=== PATIENT | female | born 1945 ===

== ENCOUNTER 2023-01-10 07:49 | Inpatient (IN) ==
--- NOTE | 2023-01-03 10:25 | PAT Medication Instructions ---
Medication Instructions Date of Service January 03, 2023 Home Medications Medication Instructions Recorded dashawn (Ultra-Light Rollator misc) #1 ea 12/31/22 acetaminophen 500 mg tablet (Tylenol Extra Strength) 500 mg PO Q6H PRN Pain ascorbic acid (vitamin C) 1,000 mg capsule 1 g PO Q6H cholecalciferol (vitamin D3) 125 mcg (5,000 unit) capsule 125 mcg PO DAILY citalopram 20 mg tablet 20 mg PO HS diclofenac sodium 1 % topical gel (Voltaren Arthritis Pain) 2 g topical QID ibuprofen 200 mg capsule 200 mg PO Q6H PRN Pain mecobalamin (vitamin B12) 1,000 mcg chewable tablet 1,000 mcg PO QAM naproxen sodium 220 mg capsule (Aleve) 220 mg PO BID PRN Pain nortriptyline 50 mg capsule 50 mg PO HS ASK your surgeon for instructions diclofenac sodium 1 % topical gel (Voltaren Arthritis Pain) 2 g topical QID ibuprofen 200 mg capsule 200 mg PO Q6H PRN Pain naproxen sodium 220 mg capsule (Aleve) 220 mg PO BID PRN Pain ASK your prescriber and surgeon nortriptyline 50 mg capsule 50 mg PO HS DO NOT take the morning of surgery ascorbic acid (vitamin C) 1,000 mg capsule 1 g PO Q6H cholecalciferol (vitamin D3) 125 mcg (5,000 unit) capsule 125 mcg PO DAILY mecobalamin (vitamin B12) 1,000 mcg chewable tablet 1,000 mcg PO QAM Take morning of surgery With a small sip of water, OTHERWISE NOTHING TO EAT OR DRINK AFTER MIDNIGHT: acetaminophen 500 mg tablet (Tylenol Extra Strength) 500 mg PO Q6H PRN Pain (if needed) Take evening before surgery acetaminophen 500 mg tablet (Tylenol Extra Strength) 500 mg PO Q6H PRN Pain (if needed) ascorbic acid (vitamin C) 1,000 mg capsule 1 g PO Q6H citalopram 20 mg tablet 20 mg PO HS Other Notes If you have any questions please call us at [phone] or [phone] or [phone] or [phone]
--- NOTE | 2023-01-04 08:29 | Anesthesiology Consultation ---
Date of Service January 04, 2023 Assessment & Plan (1) Encounter for pre-operative examination: - pt is electing no chlorhexidine wipes d/t sensitive skin and concern for skin breakage prior to surgery. Surgeon's office made aware. - Pt requests PAT testing be faxed to PCP (Noemi Mccabe) for continuity of care. - Outpatient joint assessment: Patient is currently scheduled for inpatient pathway. If re-evaluated pending system levels during current pandemic/surgeon requests outpatient pathway, patient is not acceptable candidate for outpatient joint program from anesthesia standpoint. Chart Review Chart Review: Acceptable Risk for Surgery and Patient seen in Pre Admission Testing Teaching & Discussion Pre-Anesthesia Teaching/Discussion Notes: Instructed NPO after midnight before surgery, except medications with 15 cc of water. Medication instructions provided according to the PAT guidelines. History Surgery Operation Date: 01/10/23 14:15 Proposed Procedures p Right Total Knee Arthroplasty - Duane Longo MD Height/Weight Height: 5 ft Weight: 74.7 kg Allergies Allergy/AdvReac Type Severity Reaction Status Date / Time surgical prep solutions AdvReac Severe see below Uncoded 01/03/23 09:40 Medications Home Medications Medication Instructions Recorded Confirmed Last Taken acetaminophen 500 mg tablet 500 mg PO Q6H PRN Pain 12/31/22 01/03/23 Unknown (Tylenol Extra Strength) ascorbic acid (vitamin C) 1,000 mg 1 g PO Q6H 12/31/22 01/03/23 Unknown capsule cholecalciferol (vitamin D3) 125 125 mcg PO DAILY 12/31/22 01/03/23 Unknown mcg (5,000 unit) capsule citalopram 20 mg tablet 20 mg PO HS 12/31/22 01/03/23 Unknown diclofenac sodium 1 % topical gel 2 g topical QID 12/31/22 01/03/23 Unknown (Voltaren Arthritis Pain) ibuprofen 200 mg capsule 200 mg PO Q6H PRN Pain 12/31/22 01/03/23 Unknown mecobalamin (vitamin B12) 1,000 1,000 mcg PO QAM 12/31/22 01/03/23 Unknown mcg chewable tablet naproxen sodium 220 mg capsule 220 mg PO BID PRN Pain 12/31/22 01/03/23 Unknown (Aleve) nortriptyline 50 mg capsule 50 mg PO HS 05/12/23 05/15/23 Unknown walker (Ultra-Light Rollator misc) #1 ea 12/31/22 01/03/23 Unknown Past Medical History Medical History (Updated 01/04/23 @ 08:47 by Kate Davis PA-C) 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 Exercise / Class Metabolic Activity III < 4 Walking/Shop/Light housework (denies chest discomfort or shortness of breath with usual activities) Past Surgical History Surgical History History of cataract surgery bilat History of colonoscopy History of tooth extraction Hx of knee surgery 1998 from injury > left Past Anesthesia History No Hx of Anesthesia Complications and No Family Hx of Anesthesia Complications History of PONV No Hx of Motion Sickness and History of PONV (denies needing scop patch) Social History Smoking Status: Former smoker Do You Dip or Chew Tobacco: No Smoking End Date: 20 yrs ago Hx Alcohol Use: No Hx Substance Use: No substance use type: does not use Review of Systems Patient denies chest pain, shortness of breath, dyspnea on exertion, snoring, witnessed apneas, reflux, fever, chills, cough, wheezing, or palpitations. Physical Exam Vital Signs Vitals BP 134/73 P 93 TEMP 98.3 SP02 96% on RA RESP 17 Physical Full cervical extension range of motion without pain TMD 3.5 finger breadths Mallampati Score 2 Dentition: right side upper two teeth are loose per pt; denies chipped teeth, caps/crowns, implants or bridges Lungs: normal respiratory effort. Good air movement, clear throughout to auscultation, no adventitious breath sounds Cardiac: regular rate and rhythm, no murmurs noted Carotid arteries: negative bruit bilat Lab Results Anesthesia Preop Results Results Anesthesia Widget: WBC 4.78 K/ul (4.8-10.8) L 01/04/23 Hgb 13.7 g/dl (12.0-16.0) 01/04/23 Hct 41.1 % (37.0-47.0) 01/04/23 Plt 310 K/uL (130-400) 01/04/23 Na 141 mmol/L (136-145) 01/04/23 K 4.7 mmol/L (3.5-5.1) 01/04/23 Cl 105 mmol/L (98-107) 01/04/23 CO2 30 mmol/L (21-32) 01/04/23 BUN 15 mg/dl (6-23) 01/04/23 Creat 0.84 mg/dl (0.6-1.2) 01/04/23 Glucose Level 95 mg/dl (70-99(Fasting)) 01/04/23 PT 11.0 Seconds (9.0-12.0) 01/04/23 PTT 26.6 Seconds (21.0-31.0) 01/04/23 INR 1.0 (0.9-1.1) 01/04/23 Blood Type O Positive 01/04/23 Antibody Screen NEGATIVE 01/04/23 Testing Electrocardiogram Date: 01/04/23 NSR, rate 91 bpm Chest X-Ray Date: 01/04/23 No acute chest disease COVID-19 Risk Screen Screening Information COVID-19 Screen Date: 01/04/23 Exposure 21 Days Family/Household +COVID Last 21 Days: No Exposure 10 Days Any COVID Exposure Last 10 Days: No Symptoms Last 10 Days Experienced COVID Sx Last 10 Days: No + COVID 0-90 Days COVID + in Last 0-90 Days: No
[~2023-01-10 07:49] MED LIST: ACETAMINOPHEN 500 MG TAB PO SCH; BUPIVACAINE 0.5 % 5 MG/1 ML PF 10ML VIAL ONE; BUPIVACAINE LIPOSOME/PF 266 MG, BUPIVACAINE/EPINEPHRINE 50 ML, SODIUM CHLORIDE 0.9% PF ... INFIL SCH; CeleBREX 200 MG CAP PO SCH; EPINEPHrine INJ 1 MG/ML AMP ONE; FAMOTIDINE 20 MG TAB PO SCH; LR 500ML BOLUS, THEN 15ML/HR IV SCH; LR 60ML/HR IV SCH; METOCLOPRAMIDE HCL 10 MG TABLET PO SCH; ROPIVACAINE 0.5% 5 MG/ML 30 ML VIAL ONE; TRANEXAMIC ACID 1,000 MG **IV Intra-op IV SCH; ceFAZolin 2000MG 2,000 MG/15 ML SYR IV SCH; dexAMETHasone**PF** 10 MG/ML VIAL IV SCH
--- NOTE | 2023-01-10 08:30 | History & Physical Bridge Note ---
Date of Service January 10, 2023 History & Physical Bridge Note I have examined the patient, reviewed the History & Physical and in the interval since the performance of the History & Physical I have noted the following changes of clinical significance: no changes noted
[2023-01-10] MEDS ORDERED: ONDANSETRON INJ 2 MG/ML 2 ML VIAL ONE (10:13)
[2023-01-10] MEDS ORDERED: LIDOCAINE 2% 2 ML VIAL/AMP(20MG/ML) INFIL ONE (10:13)
[2023-01-10] MEDS ORDERED: MIDAZOLAM HCL 1 MG/ML 2ML VIAL ONE (10:13)
[2023-01-10] MEDS ORDERED: fentaNYL citrate PF 100 MCG/2 ML VIAL ONE ×2 (10:13→11:38)
[2023-01-10] MEDS ORDERED: PROPOFOL IV EMULSION 10 MG/ML 20 ML VIAL IV ONE (10:13)
[2023-01-10] MEDS ORDERED: KETOROLAC 30 MG/ML VIAL ONE (10:13)
[2023-01-10] MEDS ORDERED: BUPIVACAINE/EPINEPHRINE 0.25% 1:200,000 30 ML VIAL ONE (10:37)
[2023-01-10] MEDS ORDERED: SODIUM CHLORIDE 0.9% PF 50 ML VIAL ONE (10:37)
[2023-01-10] MEDS ORDERED: BUPIVACAINE LIPOSOME 1.3% 266 MG/20 ML VIAL ONE (10:38)
[2023-01-10] MEDS ORDERED: KETAMINE 50 MG/5 ML SYRINGE ONE (11:24)
[2023-01-10] MEDS ORDERED: ATROPINE SULFATE 0.1 MG/ML 10ML SYR IV PRN (11:32)
[2023-01-10] MEDS ORDERED: PROMETHAZINE HCL 12.5 MG in SODIUM CHLORIDE 0.9% 50 ML IV PRN (11:32)
[2023-01-10] MEDS ORDERED: NALOXONE HCL 0.4 MG/1 ML VIAL/CARP IV PRN ×2 (11:32→15:05)
[2023-01-10] MEDS ORDERED: ONDANSETRON INJ 2 MG/ML 2 ML VIAL IV PRN ×2 (11:32→15:05)
[2023-01-10] MEDS ORDERED: ePHEDrine sulfate 50 MG/ML AMP IV PRN (11:32)
[2023-01-10] MEDS ORDERED: HYDROmorphone INJ 1 MG/ML SYRINGE IV PRN (11:32)
[2023-01-10] MEDS ORDERED: FLUMAZENIL 0.1 MG/1 ML 10 ML VIAL IV PRN (11:32)
[2023-01-10] MEDS ORDERED: fentaNYL citrate PF 100 MCG/2 ML VIAL IV PRN (11:32)
[2023-01-10] MEDS ORDERED: ESMOLOL HCL INJ 10 MG/ML 10ML VIAL IV ONE (11:43)
[2023-01-10] MEDS ORDERED: LABETALOL HCL IV 5 MG/ML 20ML IV ONE (11:46)
--- NOTE | 2023-01-10 12:57 | Operative Report ---
PG Post Operative Report Pre & Post Diagnosis Operation Date: 01/10/23 10:30 Pre-Op Diagnosis: Right Knee Degenerative Joint Disease Post-Op Diagnosis: Right Knee Degenerative Joint Disease I identified the patient and participated in the time-out.: Yes Procedure Operation Date: 01/10/23 10:30 Actual Procedures p Right Total Knee Arthroplasty(Right) - Duane Longo MD Surgeon Duane Longo MD Payroll Secretary Dea Camargo PA-C Estimated Blood Loss 50 Findings Consistent with Post-Op Diagnosis Operative findings were advanced right knee tricompartment DJD. She had extensive grade 4 [id number] disease in all 3 compartments with osteophytes in all 3 compartments as well as a chronic ACL deficiency. Specimens Right knee sent for pathology Anesthesia Type General Regional Complications none Disposition Accompanied Patient To Recovery: No Indications Patient 77-year-old female has had a long history of bilateral knee pain discomfort describes gotten worse over time patient failed all conservative filomena sures. X-rays showed advanced tricompartment DJD in both knees. She elected to proceed with right knee replacement. Description of Procedure Operative implants consist of: 1 Biomet Vanguard size 55 right posterior stabilized femoral component. 2. Biomet size 63 tibial tray. 3. 14 mm posterior stabilized polyethylene insert. 4. 31 x 8 all poly patella. The patient was taken the operating, identified, placed on the operating table supine position protectors were properly padded. IV antibiotics tried by anesthesia team. A spinal anesthetic had been attempted in the holding area but unsuccessful. They did do an abductor canal block. A general anesthetic was implemented. A right thigh turn was then placed. A Keating catheter was placed in sterile fashion. The right lower extremities then prepped and draped in usual sterile fashion. The right leg was elevated exsanguinated with use of an Esmarch and the tourniquet was placed at 300 mmHg. An anterior approach of the right knee was then performed to longitudinal incision centered over the patella. Sharp dissection was carried through subcutaneous tissue down the extensor mechanism. A medial parapatellar arthrotomy incision was made. Some subperiosteal dissection was carried out medially. The fat pad was resected from Neath patella tendon. Lateral patellofemoral ligament was released. Patella subluxated laterally knee was flexed. The osteophytes taken off distal femur. The ACL and PCL were then released from distal femur the tibia subluxated anteriorly. External tibial alignment jig was then placed in the interface the tibia and adjusted 12 mm medially. Proximal tibial cut was made remove about 3 mm of bone from the medial side. Tibia sized to a size 63. Attention drawn the femur. The distal femur was then with a sharp drop with intramedullary canal was suction. A right 5 degree valgus cutting guide was placed. Distal femoral cutting block was pinned in place. Distal femoral cut was made to take an additional 3 mm bone off distal femur. The femur was then sized to a size 55. The AP cutting block was pinned parallel to the epicondylar axis which was 5 degrees of external rotation. The anterior cut, anterior chamfer, posterior cut, posterior chamfer cuts were made. The box cutting guide was placed in just slight lateral and the box cut was made. The knee was flexed. The remnants of the medial lateral menisci were excised. The osteophyte taken off the posterior aspect of the femur. A trial femoral component was placed. The tibial tray was pinned in maximum external rotation and the drill and stem punch were used to create defect in proximal tibia for the tibial tray. Knee was then trialed and the 14 mm insert fit most appropriately. Of note she did have a hyperextension deformity to her knee preoperatively. Attention drawn the patella. The patella was cleaned of all soft tissues. Patella thickness measured 18 mm in thickness and was cut down to 12. We removed a lot of osteophytes circumferentially around the patella. The lug holes were drilled for the 31 patella. The lateral osteophytes removed. Patella button was placed. Knee was taken through range of motion patella tracked nicely with no thumbs test. Attention drawn to placing permanent components. Nupathe all trial components were removed. A bone plug was placed in the distal femur limit blood loss. Double batch Palacos G cement was mixed. Biomet ETI Internationalguard size 655 right posterior stabilized femoral component, a size 63 tibial tray, a 14 mm posterior stabilized polyethylene insert, and a 31 x 8 all poly patella was then cemented in place. Knee was brought into full extension till cement hardened. Final cement check was then performed. The pericapsular tissues were injected with total of 100 cc of combination of 20 cc Exparel, 30 cc normal saline, 50 cc of quarter percent Marcaine with epinephrine. Patient did receive 1 g tranexamic acid. The tourniquet was then let down for final tourniquet time of 52 minutes. Hemostasis assured with electrocautery. Extensor mechanism closed with combination 1 PDS suture and 1 Vicryl suture in [id number] fashion. Extensor mechanism checked found to be intact and the subcutaneous tissues then closed with 2 Dexon suture in buried interrupted fashion skin was closed skin rebecca. Leg was then cleaned and dried and sterile dressed with Xeroform, 4 fours, sterile cast padding, Walt bandage were applied. The patient was then brought out of general anesthesia and transferred to the recovery room in stable condition. Patient tolerated procedure well no complications. Dae Camargo, my physician orthopedic physician assistant, was present for the entire procedure. His assistance was essential and required for appropriate patient positioning, prepping and draping, surgical exposure, performing the technical details of the operation, placement the implants, closure of the wound, and placement of the sterile bandage. I attest to the content of the Intraoperative Record and any orders documented therein. Any exceptions are noted below.
--- NOTE | 2023-01-10 13:46 | Anesthesiology Progress Note ---
Date of Service January 10, 2023 Anesthesia Post Procedure Vital Signs Vital Signs: Temp Pulse Pulse Resp BP Pulse Ox O2 Del Method 01/10/23 13:30 89 15 146/76 H 92 Room Air 01/10/23 13:20 90 18 146/88 H 95 Oxymask 01/10/23 13:10 91 H 13 187/88 H 91 Oxymask 01/10/23 13:00 84 14 204/101 H 95 Oxymask 01/10/23 12:57 36.4 C L 87 15 189/100 H 95 Oxymask 01/10/23 08:52 36.8 C 96 H 20 140/95 97 Room Air O2 Flow Rate 01/10/23 13:30 01/10/23 13:20 5 01/10/23 13:10 5 01/10/23 13:00 5 01/10/23 12:57 5 01/10/23 08:52 Transfer of Care Handoff Completed per policy Notes Mental Status: alert / awake / arousable Patient Amnestic to Procedure: Yes Nausea / Vomiting: adequately controlled Pain: adequately controlled Airway Patency, RR, SpO2: stable & adequate BP & HR: stable & adequate Hydration State: stable & adequate Anesthetic Complications: no major complications apparent
[2023-01-10] MEDS ORDERED: ASCORBIC ACID 1000 MG PO SCH (15:05)
[2023-01-10] MEDS ORDERED: ALUMINUM/MAGNESIUM SUSP 30 ML UDC PO PRN (15:05)
[2023-01-10] MEDS ORDERED: METOCLOPRAMIDE HCL INJ 5 MG/ML 2 ML VIAL IV PRN (15:05)
[2023-01-10] MEDS ORDERED: bisacodyL 10 MG SUPP PR PRN (15:05)
[2023-01-10] MEDS ORDERED: MAGNESIUM HYDROXIDE SUSP 30 ML UDC PO PRN (15:05)
--- NOTE | 2023-01-10 15:16 | XRay Report ---
RIGHT KNEE 2 VIEWS History: Right total knee arthroplasty. Degenerative arthritis. Postop. FINDINGS: The patient is status post a right total knee arthroplasty. The hardware is intact. No frac ture or dislocation. Skin rebecca are in place. IMPRESSION: Right total knee arthroplasty. No evidence for hardware complication. ACT 112: Negative or not required by law. Electronically signed by: Migel Reeder M.D. 01/10/2023 3:14 PM
[2023-01-10] MEDS: ASCORBIC ACID 500 MG TAB PO SCH (16:02)
[2023-01-10] MEDS: ACETAMINOPHEN 500 MG TAB PO SCH ×2 (16:02→21:31)
[2023-01-10] MEDS: SODIUM CHLORIDE 0.9% 1000ML 1,000 ML IV SCH (16:02)
[2023-01-10] MEDS: KETOROLAC TROMETHAMINE 15 MG/ML VIAL IV SCH ×2 (16:03→21:33)
[2023-01-10] MEDS: ceFAZolin 1000MG 1,000 MG/7.5 ML SYR IV SCH (18:44)
[2023-01-10] MEDS ORDERED: TRANEXAMIC ACID / 0.7% NACL 1,000 MG/100 ML BAG IV SCH (19:00)
[2023-01-10] MEDS: DOCUSATE SODIUM 100 MG CAP PO SCH (20:12)
[2023-01-10] MEDS: ASPIRIN 81 MG ECTAB PO SCH (20:12)
[2023-01-10] MEDS: NORTRIPTYLINE HCL 25 MG CAP PO SCH (20:12)
[2023-01-10] MEDS: SENNA 8.6 MG TAB PO SCH (20:13)
[2023-01-10] MEDS: CITALOPRAM 20 MG TAB PO SCH (20:13)
[2023-01-11] MEDS: ceFAZolin 1000MG 1,000 MG/7.5 ML SYR IV SCH (02:04)
[2023-01-11] MEDS: oxyCODONE HCL IR 5 MG TAB (IMMEDIATE RELEASE) PO PRN (02:08)
[2023-01-11] MEDS: SODIUM CHLORIDE 0.9% 1000ML 1,000 ML IV SCH (02:21)
[2023-01-11] MEDS: KETOROLAC TROMETHAMINE 15 MG/ML VIAL IV SCH ×4 (03:29→22:17)
[2023-01-11] MEDS: ACETAMINOPHEN 500 MG TAB PO SCH ×3 (05:53→22:18)
[2023-01-11 07:27] LABS: Hematocrit (blood only) 30.7 % (37.0-47.0); Hemoglobin 10.5 g/dl (12.0-16.0); Mean Corpuscular Hemoglobin 31.8 pg (25.0-34.0); Mean Corpuscular Hgb Conc 34.2 g/dL (32.0-36.0); Mean Platelet Volume 8.8 fL (9.4-12.4); Platelet Count 215 K/uL (130-400); RDW Coefficient of Variation 13.1 % (11.5-14.5); RDW Standard Deviation 44.4 fL (36.4-46.3); White Blood Count 8.34 K/ul (4.8-10.8)
[2023-01-11 08:00] LABS: Calcium 8.3 mg/dl (8.6-10.3); Creatinine Clr Calc Pharmacy 60.1 ml/min; Est GFR (African American) 91.9 ml/min; Est GFR (Non-African American) 79.3 ml/min; Potassium 3.6 mmol/L (3.5-5.1)
[2023-01-11] MEDS ORDERED: dexAMETHasone 10 MG in SYRINGE 0 ML IV SCH (08:00)
[2023-01-11] MEDS: ASCORBIC ACID 500 MG TAB PO SCH ×2 (09:11→16:14)
[2023-01-11] MEDS: ASPIRIN 81 MG ECTAB PO SCH ×2 (09:12→20:40)
[2023-01-11] MEDS: DOCUSATE SODIUM 100 MG CAP PO SCH ×2 (09:12→20:40)
[2023-01-11] MEDS: CHOLECALCIFEROL 5,000 UNITS 125 MCG TAB PO SCH (09:12)
[2023-01-11] MEDS: CYANOCOBALAMIN (B-12) 500 MCG TABLET PO SCH (09:12)
[2023-01-11] MEDS: MULTIVITAMIN TAB PO SCH (09:12)
--- NOTE | 2023-01-11 11:51 | Progress Notes ---
DATE OF SERVICE: 01/11/2023. SUBJECTIVE: A 77-year-old white female, postop day 1 from right knee replacement. She is doing pret ty well. Pain is controlled. A fairly minimal pain. No chest pain or shortness of breath. Not fee ling dizzy or lightheaded. OBJECTIVE: VITAL SIGNS: Temperature 36.9. Vital signs are stable. GENERAL: Shows a pleasant, elderly female. She is lying in bed and looks quite comfortable this mor nissa. LUNGS: Clear to auscultation. HEART: Regular rate and rhythm. ABDOMEN: Soft, nontender, nondistended. EXTREMITIES: Grossly neurovascularly intact except as follows. Examination of the right knee reveals the dressing to be clean, dry and intact. She can dorsiflex an d plantarflex her foot appropriately. She can do a good straight leg raise. LABORATORY DATA: Hemoglobin 10.5, hematocrit 30.7. Electrolytes are stable. ASSESSMENT: A 77-year-old white female, postop day 1 from right knee replacement, doing pretty well. Pain is controlled. She is neurologically intact. She is hoping to go to [facility]. She lives by herself. PLAN: 1. DVT prophylaxis including thigh-high TEDs, SCDs, and aspirin twice a day. 2. PT/OT, weightbear as tolerated. Right total knee protocol. 3. Pain control, doing okay with current pain regimen. 4. Disposition: Plan to discharge to [facility]. We are waiting for acceptance/approval. Job ID: [id number]
[2023-01-11] MEDS: CITALOPRAM 20 MG TAB PO SCH (20:40)
[2023-01-11] MEDS: SENNA 8.6 MG TAB PO SCH (20:41)
[2023-01-11] MEDS: NORTRIPTYLINE HCL 25 MG CAP PO SCH (20:41)
[2023-01-12] MEDS: KETOROLAC TROMETHAMINE 15 MG/ML VIAL IV SCH ×2 (04:17→09:23)
[2023-01-12] MEDS: ACETAMINOPHEN 500 MG TAB PO SCH ×3 (05:42→19:55)
[2023-01-12] MEDS: ASPIRIN 81 MG ECTAB PO SCH ×2 (07:55→19:54)
[2023-01-12] MEDS: DOCUSATE SODIUM 100 MG CAP PO SCH ×2 (07:55→19:54)
[2023-01-12] MEDS: MULTIVITAMIN TAB PO SCH (07:55)
[2023-01-12] MEDS: CYANOCOBALAMIN (B-12) 500 MCG TABLET PO SCH (07:55)
[2023-01-12] MEDS: CHOLECALCIFEROL 5,000 UNITS 125 MCG TAB PO SCH (07:55)
[2023-01-12] MEDS: ASCORBIC ACID 500 MG TAB PO SCH ×2 (07:55→18:06)
--- NOTE | 2023-01-12 13:38 | Progress Notes ---
DATE OF SERVICE: 01/12/2023. SUBJECTIVE: A 77-year-old female, postop day 2 from right knee replacement. She is doing pretty wel l. Pain has been well controlled. Therapy is going well. Denies any chest pain or shortness of mayra ath. Not feeling dizzy or lightheaded. She is hoping to go to rehab/[facility]. OBJECTIVE: VITAL SIGNS: Temperature 36.8. Vital signs are stable. GENERAL: Shows a pleasant, elderly female patient lying in bed and looks comfortable. EXTREMITIES: Examination of the right leg reveals a little bit of bloody drainage on the front of th e dressing inferiorly. Leg is well aligned. She can dorsiflex and plantarflex her foot appropriatel y. She is neurologically intact. LABORATORY DATA: No new labs. ASSESSMENT: A 77-year-old female, postop day 2 from right knee replacement, doing well. Pain is con trolled. She is neurologically intact. Just waiting for placement into rehab and acceptance. I thi nk she has to have a 3-night stay. PLAN: 1. DVT prophylaxis including thigh-high TEDs, SCDs, and aspirin twice a day. 2. PT/OT, weightbear as tolerated. Right total knee protocol. 3. Pain control. Pain well controlled on current pain regimen. 4. Disposition: Plan to discharge her to rehab. I believe they have a bed for her tomorrow. I bel ieve she needs a 3-night stay. Job ID: [id number]
[2023-01-12] MEDS: CITALOPRAM 20 MG TAB PO SCH (19:54)
[2023-01-12] MEDS: SENNA 8.6 MG TAB PO SCH (19:54)
[2023-01-12] MEDS: NORTRIPTYLINE HCL 25 MG CAP PO SCH (19:54)
[2023-01-13] MEDS: oxyCODONE HCL IR 5 MG TAB (IMMEDIATE RELEASE) PO PRN (05:44)
[2023-01-13] MEDS: ACETAMINOPHEN 500 MG TAB PO SCH (05:44)
[2023-01-13] MEDS: ASCORBIC ACID 500 MG TAB PO SCH (08:39)
[2023-01-13] MEDS: DOCUSATE SODIUM 100 MG CAP PO SCH (08:39)
[2023-01-13] MEDS: ASPIRIN 81 MG ECTAB PO SCH (08:39)
[2023-01-13] MEDS: CHOLECALCIFEROL 5,000 UNITS 125 MCG TAB PO SCH (08:39)
[2023-01-13] MEDS: MULTIVITAMIN TAB PO SCH (08:39)
[2023-01-13] MEDS: CYANOCOBALAMIN (B-12) 500 MCG TABLET PO SCH (08:39)
== END 2023-01-13 11:24 | DRG 470 ==
LOC: ASU 07:49 → 3N 12:50